=== PATIENT | female | born 1995 | race Caucasian/White ===

== ENCOUNTER 2018-01-05 23:53 | Emergency (ER) | payer OTHER ==
[~2018-01-05] VITALS: Ht 177.8 cm; Wt 52.9 kg
[~2018-01-05 23:53] MED LIST: NO HOME MED
[2018-01-06] MEDS ORDERED: MOTRIN600 MG PO (02:13)
[2018-01-06 02:27] VITALS: BP 131/93
== END 2018-01-06 02:28 | disposition home or self-care (01) ==
LOC: EME 23:53
DX: S83.91XA Sprain of unspecified site of right knee, initial encounter (principal); X58.XXXA Exposure to other specified factors, initial encounter
CPT/HCPCS: 73564; 99281; 99284